=== PATIENT | male | born 1980 | race Caucasian/White ===

== ENCOUNTER 2025-08-16 08:43 | Outpatient (CLI) | payer BC, SELFPAY | END 2025-08-16 08:44 | disposition home or self-care (01) | LOC: LKVREF 08:45 | PROVIDERS: PCP Family Medicine; Visit Provider Family Medicine | DX: Z12.5 Encounter for screening for malignant neoplasm of prostate (principal); Z80.42 Family history of malignant neoplasm of prostate | CPT/HCPCS: G0103 ==

== ENCOUNTER 2025-10-19 08:09 | Outpatient (CLI) | payer BC, SELFPAY | END 2025-10-19 08:10 | disposition home or self-care (01) | PROVIDERS: PCP Family Medicine | DX: F41.9 Anxiety disorder, unspecified (principal) | CPT/HCPCS: 36415 ==